=== PATIENT | male | born 1985 | race Caucasian/White ===

== ENCOUNTER 2023-07-22 06:00 | Emergency (ER) | payer BC ==
[~2023-07-22] VITALS: Ht 162.6 cm; Wt 68.0 kg
[2023-07-22 06:08] VITALS: BP 131/90; PULSE 71; RESP 18; O2SAT 99
[2023-07-22] MEDS ORDERED: SULF-59 PO (06:46)
[2023-07-22 06:54] VITALS: BP 114/74; PULSE 71; RESP 15; O2SAT 100
== END 2023-07-22 06:53 | disposition home or self-care (01) ==
LOC: MED 06:00
DX: L03.211 Cellulitis of face (principal); Z79.899 Other long term (current) drug therapy
CPT/HCPCS: 99282